=== PATIENT | female | born 1955 | race Caucasian/White ===

== ENCOUNTER 2017-01-17 21:16 | Emergency (ER) | payer OTHER ==
[~2017-01-17] VITALS: Ht 157.5 cm; Wt 61.2 kg
[2017-01-17] MEDS ORDERED: KETOROLAC 30 MG/ML (TORADOL) 1 ML VIAL IV ONE (21:25)
[2017-01-17] MEDS ORDERED: SODIUM CHLORIDE FLUSH 10 ML SYR IV PRN (21:25)
[2017-01-17] MEDS ORDERED: SODIUM CHLORIDE FLUSH 3 ML SYR IV PRN (21:25)
[2017-01-17 21:38] LABS: BASOPHILS % (AUTO) 1 % (0-2); EOSINOPHILS # (AUTO) 0.2 10^3uL; EOSINOPHILS % (AUTO) 4 % (0-4); LYMPHOCYTES # (AUTO) 2.6 X10^3; MEAN CORPUSCULAR HEMOGLOBIN 29.5 PG (26.0-34.0); MEAN CORPUSCULAR HGB CONC 33.6 g/dL (31.0-37.0); MEAN CORPUSCULAR VOLUME 88 FL (80-100); MEAN PLATELET VOLUME 10.4 FL (6.0-9.5); MONOCYTES # (AUTO) 0.5 X10^3; MONOCYTES % (AUTO) 7 % (3-11); NEUTROPHILS # (AUTO) 3.5 X10^3; NEUTROPHILS % (AUTO) 51 % (51-67); PLATELET COUNT 251 10^3uL (150-450); WHITE BLOOD COUNT 6.92 10^3uL (4.0-11.0)
[2017-01-17 21:46] LABS: ANION GAP 14.9 MEQ/L (3-15)
[2017-01-17] MEDS ORDERED: HYDROmorphone 1 MG/ML (DILAUDID) SYRINGE IV ONE (21:50)
[2017-01-17 22:48] LABS: BILIRUBIN,URINE Negative (Negative); COLOR,URINE Yellow; GLUCOSE, URINE (UA) Negative (Negative); LEUKOCYTE ESTERASE ,URINE Trace (Negative); PH,URINE 6.5 (5.0 - 8.0); UROBILINOGEN,URINE 0.2 mg/dL (0.2-1.0)
[2017-01-17 23:08] LABS: CLARITY,URINE Slightly Cloudy
[2017-01-17 23:09] LABS: RBC,URINE >100 /HPF; URINE CENTRIFUGED VOLUME 12 mL
[2017-01-17] MEDS ORDERED: ED- TRAMADOL 50 MG (ULTRAM) 6 TABLETS/BTL PO ONE (23:45)
--- NOTE | 2017-01-17 23:45 | NUR ---
Pt reports that she remembers that she does have history of seizures. 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
[2017-01-17] MEDS ORDERED: ED- ACETAMINOHEN/CODEINE 300MG/30 MG (TYLENOL #3) 6 TABLETS/BTL PO ONE (23:55)
[2017-01-18 00:34] VITALS: BP 126/58
== END 2017-01-18 00:14 | disposition home or self-care (01) ==
LOC: ED 21:18
DX: N20.2 Calculus of kidney with calculus of ureter (principal)
CPT/HCPCS: 36415; 74176; 80048; 81003; 81015; 85025; 87088; 96361; 96374; 96375; 99283; J1170; J1885; J7030; 99291